=== PATIENT | male | born 1960 | race Caucasian/White ===

== ENCOUNTER 2017-06-16 16:25 | Emergency (ER) | payer BC ==
[2017-06-16] MEDS ORDERED: Morphine INJ* 4 MG/ML 1 ML SYRINGE IV ONE (17:43)
[2017-06-16] MEDS ORDERED: Ondansetron INJ* 2 MG/ML VIAL IV ONE (17:43)
[2017-06-16] MEDS ORDERED: NS 0.9% 1000 ML* 2,000 ML IV ONE (17:43)
--- NOTE | 2017-06-16 18:22 | RAD ---
INDICATION: LEFT flank and LEFT lower quadrant pain increasing in severity over one week. History of urolithiasis. COMPARISON: February 12, 2009 CT. TECHNIQUE: Multidetector CT images were obtained from the lung bases to the ischial tuberosities. Evaluation of the viscera is limited without IV contrast. Multiplanar reformation. REPORT: Unchanged tiny focus of subpleural thickening at the superior segment of the RIGHT lower lobe compared with the 2009 exam without concern. Decreased density of the liver consistent with fatty infiltration. No focal hepatic lesions, biliary dilatation, or CT abnormality of the gallbladder, pancreas, or spleen. Negative for CT abnormality of the upper GI, small bowel, or infra cecal appendix. Mild colonic diverticulosis without findings of diverticulitis. Negative for ascites or free air. Fat-containing indirect appearing RIGHT inguinal hernia without inflammatory change. Normal adrenal glands. Enlarged RIGHT kidney with thin atrophic cortex and innumerable cysts with largest measuring up to 8 cm and lower pole calyceal stones measuring up to 1.6 cm maximum dimension. Negative for RIGHT hydronephrosis. Unremarkable nondilated RIGHT ureter. Moderate LEFT hydronephrosis and perinephric and periureteral inflammatory change is traced to a 8 mm distal ureteral stone approximate 5 cm from the ureterovesicular junction. Additional 2 mm stone at the midpole of the LEFT kidney. Largely decompressed urinary bladder without gross abnormality. Unremarkable prostate and symmetric seminal vesicles. Negative for lymphadenopathy. Mild to moderate calcific plaque of normal diameter abdominal aorta and iliac arteries. Physiologic distention of the IVC. Polyarticular degenerative arthropathy. No suspicious focal osseous lesions evident. IMPRESSION: 1. Urolithiasis. Moderate LEFT hydronephrosis and perinephric and periureteral inflammatory change is traced to an 8 mm distal ureteral stone approximate 5 cm from the ureterovesicular junction. 2. Enlarged RIGHT kidney with atrophic cortex and innumerable large cysts. Negative for RIGHT hydronephrosis.
[2017-06-16 18:32] LABS: Hematocrit 44 % (42-52); Hemoglobin 14.5 g/dl (14.0-18.0); Mean Corpuscular HGB Conc 33 g/dl (31-36); Mean Corpuscular Hemoglobin 30 pg (27-31); Mean Corpuscular Volume 90 fL (80-94); Mean Platelet Volume 10 um3 (7.4-10.4); Red Blood Count 4.85 10^6/ul (4.0-5.4); Red Cell Distribution Width 14 % (10.5-15); White Blood Count 12.8 10^3/ul (3.5-10.8)
[2017-06-16] MEDS ORDERED: HYDROmorphone* 1 MG/ML 1 ML SYR IV SLOW PU ONE ×2 (18:48→21:20)
[2017-06-16 18:51] LABS: Albumin 3.8 g/dL (3.2-5.2); BUN/Creatinine Ratio 10.8 (8-20); Calcium 9.2 mg/dL (8.6-10.3); EGFR African American 41.6 (>60); EGFR Non-African American 32.4 (>60); Globulin 3.4 g/dL (2-4); Total Bilirubin 0.9 mg/dL (0.2-1.0); Total Protein 7.2 g/dL (6.4-8.9)
--- NOTE | 2017-06-16 18:52 | ED ---
GI/ HPI - HPI Summary HPI Summary: 57M presents with left flank pain for a week. He states pain is present in LUQ and LLQ. He admits to nausea and vomiting. He denies any constipation or diarrhea. He denies any hematuria. He has history of kidney stones but says that the pain is much worst. last meal was at 10am with scrabbled eggs. He denies any previous abdominal surgeries. His kidney stones had been in his kidney last week when he was seen by Dr de jesus whom he normally sees. - History of Current Complaint Chief Complaint: EDAbdPain Time Seen by Provider: 06/16/17 17:33 Stated Complaint: ABD PAIN Pain Intensity: 7 - Allergy/Home Medications Allergies/Adverse Reactions: Allergies Allergy/AdvReac Type Severity Reaction Status Date / Time Lisinopril Allergy Intermediate Coughing Verified 06/16/17 16:36 PMH/Surg Hx/FS Hx/Imm Hx Endocrine/Hematology History: Denies: Hx Diabetes, Hx Sickle Cell Disease, Hx Thyroid Disease Cardiovascular History: Reports: Hx Hypertension - BORDERLINE HIGH JUST STARTED TAKING LISINOPRIL Denies: Hx Pacemaker/ICD Respiratory History: Denies: Hx Asthma, Hx Chronic Obstructive Pulmonary Disease (COPD) GI History: Denies: Hx Ulcer, Other GI Disorders History: Reports: Hx Kidney Stones - 2007 Musculoskeletal History: Denies: Other Musculoskeletal History Sensory History: Reports: Hx Contacts or Glasses - GLASSES Denies: Hx Hearing Aid Opthamlomology History: Reports: Hx Contacts or Glasses - GLASSES Neurological History: Denies: Other Neuro Impairments/Disorders Psychiatric History: Denies: Hx Panic Disorder - Surgical History Surgery Procedure, Year, and Place: KIDNEY STONES- 2007. PLANTAR WART REMOVAL - 1991. Left KNee medial meniscus repair, 09/24/13 Hx Anesthesia Reactions: No Infectious Disease History: No Infectious Disease History: Denies: Hx Hepatitis, Hx Human Immunodeficiency Virus (HIV), Traveled Outside the [place] in Last 30 Days - Family History Known Family History: Positive: Cardiac Disease - Social History Alcohol Use: Daily Alcohol Amount: 2 beers daily Substance Use Type: Reports: None Smoking Status (MU): Never Smoked Tobacco Review of Systems Negative: Fever Negative: Chest Pain Negative: Shortness Of Breath Positive: Abdominal Pain, Vomiting, Nausea. Negative: Diarrhea Positive: flank pain. Negative: dysuria All Other Systems Reviewed And Are Negative: Yes Physical Exam Triage Information Reviewed: Yes Vital Signs On Initial Exam: Initial Vitals Temp Pulse Resp BP Pulse Ox 99.6 F 111 16 174/103 95 06/16/17 16:26 06/16/17 16:26 06/16/17 16:26 06/16/17 16:26 06/16/17 16:26 Vital Signs Reviewed: Yes Appearance: Positive: Pain Distress Skin: Positive: Warm, Dry Head/Face: Positive: Normal Head/Face Inspection Eyes: Positive: Normal, Conjunctiva Clear ENT: Positive: Normal ENT inspection, Pharynx normal, TMs normal Respiratory/Lung Sounds: Positive: Clear to Auscultation, Breath Sounds Present Cardiovascular: Positive: Normal, RRR Abdomen Description: Positive: Soft, CVA Tenderness (L), Other: - tenderness in LUQ and LLQ pain Bowel Sounds: Positive: Present - [place] Coma Scale Coma Scale Total: 15 Diagnostics - Vital Signs Vital Signs Temp Pulse Resp BP Pulse Ox 06/16/17 18:29 89 93 06/16/17 18:19 22 06/16/17 16:26 99.6 F 111 16 174/103 95 - Laboratory Lab Results: Lab Results 06/16/17 Range/Units 18:23 Sodium 134 (133-145) mmol/L Potassium Pending Chloride 102 (101-111) mmol/L Carbon Dioxide 20 L (22-32) mmol/L Anion Gap Pending BUN 23 (6-24) mg/dL Creatinine 2.12 H (0.67-1.17) mg/dL Est GFR ( Amer) 41.6 (>60) Est GFR (Non-Af Amer) 32.4 (>60) BUN/Creatinine Ratio 10.8 (8-20) Glucose 124 H (70-100) mg/dL Calcium 9.2 (8.6-10.3) mg/dL Total Bilirubin 0.90 (0.2-1.0) mg/dL AST Pending ALT 15 (7-52) U/L Alkaline Phosphatase 69 (34-104) U/L C-React Prot High Sens 128.44 mg/L Total Protein 7.2 (6.4-8.9) g/dL Albumin 3.8 (3.2-5.2) g/dL Globulin 3.4 (2-4) g/dL Albumin/Globulin Ratio 1.1 (1-3) Lipase 42 (11.0-82.0) U/L Result Diagrams: 06/16/17 18:23 06/16/17 18:23 Lab Statement: Any lab studies that have been ordered have been reviewed, and results considered in the medical decision making process. - CT abd CT Interpretation: Positive (See Comments) - IMPRESSION: 1. Urolithiasis. Moderate LEFT hydronephrosis and perinephric and periureteral inflammatory change is traced to an 8 mm distal ureteral stone approximate 5 cm from the ureterovesicular junction. 2. Enlarged RIGHT kidney with atrophic cortex and innumerable large cysts. Negative for RIGHT hydronephrosis. CT Interpretation Completed By: Radiologist MAGO Course/Dx - Course Course Of Treatment: 57M presents with left flank pain for a week. He states pain is present in LUQ and LLQ. He admits to nausea and vomiting. He denies any constipation or diarrhea. He denies any hematuria. He has history of kidney stones but says that the pain is much worst. He denies any previous abdominal surgeries. His kidney stones had been in his kidney last week when he was seen by Dr de jesus whom he normally sees. on exam pos CVA tenderness left. pain controlled with dilaudid and morphine. u/a no infection. CT shows 8mm stone. spoke with dr cabrera said to follow up outpatient. discussed with patient as would like to see dr de jesus tomorrow. patient understands and agrees with plan. - Diagnoses Differential Diagnoses - Male: Pyelonephritis, Ureteral Calculi, Urinary Tract Infection Provider Diagnoses: Kidney stone - Physician Notifications Discussed Care Of Patient With: dr cabrera Time Discussed With Above Provider: 20:11 - send home to follow up outpatient tomorrow, pain meds, zofran, flomax, get kub Discharge - Discharge Plan Condition: Good Disposition: HOME Prescriptions: Ondansetron ODT TAB* [Zofran 4 MG Odt TAB*] 4 mg PO Q6H PRN #20 tab.odt PRN Reason: Nausea Tamsulosin CAP* [Flomax CAP*] 0.4 mg PO DAILY #7 cap oxyCODONE/Acetamin 5/325 MG* [Percocet 5/325 TAB*] 1 tab PO Q4H PRN #30 tab MDD 6 PRN Reason: Pain Patient Education Materials: Kidney Stones (ED) Referrals: Concetta Handley MD [Primary Care Provider] - Qamar De Jesus MD [Medical Doctor] - Additional Instructions: Take narcotic as needed every 4-6 hours Take Zofran every 6 hours for nausea as needed Take Flomax daily starting tomorrow, first dose given in ED until stone expelled , make sure stand up slowly Follow up with urology, call office tomorrow for appointment Strain urine until collect stone Return to ED if unable to manage pain at home, develop fever, or any new or worsening symptoms
[2017-06-16 18:53] LABS: Potassium 4.5 mmol/L (3.5-5.0)
[2017-06-16 19:10] LABS: Urine Bacteria Absent (Absent); Urine Bilirubin Negative (Negative); Urine Glucose Negative (Negative); Urine Nitrite Negative (Negative)
[2017-06-16] MEDS ORDERED: Tamsulosin CAP* 0.4 MG PO ONE (20:10)
[2017-06-16] MEDS ORDERED: oxyCODONE/Acetamin 5/325 MG* TAB PO ONE (20:48)
[2017-06-16] MEDS ORDERED: Ondansetron ODT TAB* 4 MG PO ONE (20:48)
[2017-06-16 21:12] VITALS: BP 176/105
--- NOTE | 2017-06-16 21:30 | RAD ---
Indication: LEFT lower quadrant pain radiating superiorly and posteriorly. LEFT hydronephrosis traced to a distal ureteral stone on CT of the same date. Comparison: CT of the same date. Technique: Supine AP abdomen. Report: 7 mm cephalocaudal distal LEFT ureteral stone visualized corresponding with the CT finding. Multiple pelvic phleboliths visualized. No calcifications visualized at the level of the renal fossa with bowel contents limiting assessment. Unremarkable soft tissue contours. IMPRESSION: No change in position of the distal LEFT ureteral stone compared with the CT of the same date.
== END 2017-06-16 21:53 | disposition home or self-care (01) ==
LOC: ED 16:25
DX: N20.0 Calculus of kidney (principal); R11.2 Nausea with vomiting, unspecified; R10.84 Generalized abdominal pain
CPT/HCPCS: 36415; 74000; 74176; 80053; 81003; 81015; 83690; 85025; 86141; 96374; 96375; 99285; A9270-GY; J1170; J2270; J2405

== ENCOUNTER 2017-06-17 09:52 | Day surgery (SDC) | payer BC ==
--- NOTE | 2017-06-17 09:41 | HP ---
CC: Dr. Concetta Handley* HISTORY AND PHYSICAL: DATE OF PLANNED ADMISSION AND SURGERY: 06/17/17 HISTORY OF PRESENT ILLNESS: Mr. Kan is a 57-year-old white male who is admitted with a left ureteral calculus for cystoscopy, left ureteral ureteroscopy, laser lithotripsy, and left ureteral stent placement. Mr. Kan is a known stone former, and, in 2008, he required left ureteroscopy and laser lithotripsy of a left ureteral calculus. He had been followed with periodic renal ultrasounds. He is known to have a multi-cystic, poorly-functioning right kidney with multiple calcifications in it. The right kidney has been asymptomatic. He is also known to have left renal calculi which had been observed. About one week ago, he started having mild left abdominal and left lower quadrant pain. There was no associated fever or chills, or voiding symptoms. He presented to the emergency room last night with symptoms of left renal colic. His urinalysis was positive for blood, negative for infection. His creatinine was elevated at 2.2. (baseline 1.3) His white count was normal. Non-contrast CT of the abdomen and pelvis showed again the multi-cystic right kidney with non-obstructing calculi. There was left hydronephrosis and hydroureter, and an 8-10 mm calculus in the distal left ureter, about 5 cm above the ureterovesical junction. Patient was treated with IV fluids, pain medication, and sent home. I evaluated him in the office this morning, and he is feeling much better with less pain. He hasn't had any fever or chills. Because of the degree of obstruction, the size of the obstructing stone of his good kidney, he is taken to the OR on an urgent basis for endoscopic stone extraction and Lt ureteral stent placement. PAST MEDICAL HISTORY AND SYSTEM REVIEW: The patient is hypertensive, and was recently started on amlodipine. He has not taken his medication this morning. He is otherwise in good health. He denies any cardiac or pulmonary diseases or symptoms. SURGICAL HISTORY: Relevant for a meniscus surgery on his left knee several years ago. ALLERGIES: He denies any allergies to medications. FAMILY HISTORY: Relevant for his father who of prostate carcinoma at the age of 56. The patient's last PSA four months ago was normal at 0.7. PHYSICAL EXAMINATION GENERAL: Obese white male who looks comfortable and in no acute pain. VITAL SIGNS: Blood pressure 160/100, pulse 110, temperature 96.5. LUNGS: Clear. HEART: Regular and rhythmic. No murmurs. ABDOMEN: Soft, obese, no CVA tenderness. EXTERNAL GENITALIA: Normal. RECTAL EXAM: Done earlier this year showed a non-enlarged and non-suspicious prostate. IMPRESSION: Left renal colic due to an 8-10 mm calculus in the distal left ureter. Left non-obstructing renal calculi. Poorly functioning multi-cystic right kidney with non-obstructing renal calculi. Decreased renal function due to the obstruction of his good functioning kidney. Hypertension. PLAN: Plan is for cystoscopy, left ureteroscopy, laser lithotripsy, and left ureteral stent insertion. I discussed the above plans in detail with the patient. All his questions were answered. Patient understands that his procedure might have to be staged if the ureteroscopy cannot be performed due to edema around the stone. [id number]/CPS #: [id number] MTDD
[~2017-06-17 09:52] MED LIST: Buffered Lidocaine 0.9% SYRIN* 5 ML/SYR SYRINGE ONE; cefTRIAXone(*) 2 GM ADDV.VIAL IVPB ONE
[2017-06-17] MEDS ORDERED: HYDROmorphone* 2 MG/ML 1 ML SYR ONE (09:57)
[2017-06-17] MEDS ORDERED: Midazolam* 1 MG/ML 2 ML VIAL (2 MG) ONE (10:38)
[2017-06-17] MEDS ORDERED: fentaNYL* 50 MCG/ML 2 ML VIAL (100 MCG VIAL) ONE (10:38)
[2017-06-17] MEDS ORDERED: Iohexol 180 (CONTRAST) 10 ML SDV IV ONE (11:14)
[2017-06-17] MEDS ORDERED: Labetalol IV* 5 MG/ML 20 ML VIAL ONE (11:40)
[2017-06-17] MEDS ORDERED: Propofol* 10 MG/ML 20 ML BTL IV PUSH ONE (11:42)
[2017-06-17] MEDS ORDERED: Lidocaine 2% PF * 5 ML VIAL ONE (11:42)
[2017-06-17] MEDS ORDERED: Dexamethasone IV* 4 MG/ML 1 ML (4 MG) ONE (11:42)
[2017-06-17] MEDS ORDERED: Ondansetron INJ* 2 MG/ML VIAL ONE (11:42)
[2017-06-17] MEDS ORDERED: hydrALAZINE IV* 20 MG/ML VIAL ONE ×2 (11:42→13:54)
[2017-06-17] MEDS ORDERED: Acetaminophen IV 1GM/100ML * 100 ML IVPB ONE (12:14)
[2017-06-17] MEDS ORDERED: oxyCODONE/Acetamin 5/325 MG* TAB PO PRN (12:14)
[2017-06-17] MEDS ORDERED: Acetaminophen IV 1GM/100ML * 100 ML ONE (12:56)
--- NOTE | 2017-06-17 13:05 | RAD ---
INDICATION: Cystoscopy, left ureteroscopy COMPARISONS: None relevant TECHNIQUE: Fluoroscopy was provided for a retrograde pyelogram and stent placement. Total fluoroscopy time is: 18 seconds FINDINGS: Contrast is noted within the renal collecting system. A ureteral stent is noted. IMPRESSION: FLUOROSCOPY WAS PROVIDED FOR A RETROGRADE PYELOGRAM AND STENT PLACEMENT CPT II Codes: 6045F
[2017-06-17] MEDS ORDERED: oxyCODONE/Acetamin 5/325 MG* TAB ONE (13:10)
[2017-06-17 14:38] VITALS: BP 167/98
--- NOTE | 2017-06-18 12:08 | OP ---
CC: Dr. Concetta Handley * DATE OF OPERATION: 06/17/17 - [facility] DATE OF : 60 SURGEON: Qamar De Jesus MD ANESTHESIOLOGIST: Nesha Bai MD ANESTHESIA: General. PRE-OP DIAGNOSES: 1. Left ureteral calculus (8 to 10 mm). 2. Left renal colic and left hydronephrosis due to above. 3. Poorly functioning right kidney. POST-OP DIAGNOSES: 1. Left ureteral calculus (8 to 10 mm). 2. Left renal colic and left hydronephrosis due to above. 3. Poorly functioning right kidney. OPERATIVE PROCEDURE: 1. Cystoscopy. 2. Left ureteroscopy and laser lithotripsy of left ureteral calculus. 3. Left retrograde pyelography and placement of left ureteral stent (6-Malagasy). INDICATIONS: Mr. Kan is a 57-year-old white male, who has multicystic poorly functioning right kidney and known left renal calculi. He presented early this morning to the emergency room with symptoms of left renal colic and noncontrast CT of the abdomen and pelvis showed an 8- to 10-mm calculus in the distal left ureter associated with left hydroureteronephrosis. Nonobstructing left renal calculi were noted. The chronic changes in the right kidney were again seen. His serum creatinine was elevated at 2.2, up from a baseline of 1.3. Because of the above history and findings, the patient is taken to the operating room for the above procedure. PATHOLOGY AT CYSTOSCOPY: The penile and bulbar urethrae looked normal. There was moderate elevation of the bladder neck with partial obstruction by the prostate. Examination of the bladder showed normal bladder mucosa. There was a single ureteral orifice on each side. There were no suspicious bladder lesions seen. Upon left ureteroscopy, an 8- to 10-mm calculus was noted in the distal left ureter about 4 cm above the level of the orifice. At fluoroscopy, the left kidney looked obstructed and incompletely rotated. DESCRIPTION OF PROCEDURE: After successful general anesthesia, the patient was placed in the lithotomy position and was prepped and draped for a cystoscopy. Cystoscopy was performed. The bladder was carefully inspected and above findings were noted. A flexible-tip guidewire was then introduced into the left orifice and positioned in the area of the left renal pelvis. The cystoscope was removed, keeping the guidewire in place. A size 6.5 semirigid ureteroscope was then introduced under direct vision inside the bladder. A flexible-tip basket was then introduced through the port of the ureteroscope and its flexible tip was passed inside the left ureteral orifice and was used as a guide to introduce the ureteroscope into the ureter with minimal trauma. The ureteral calculus was identified. The basket was deployed and the stone was partially engaged to prevent its proximal migration. A size 550 micron laser fiber was then introduced through the other port of the ureteroscope and was used to fragment the calculus in multiple pieces. The stone fragments were then extracted. Inspection of the ureter showed edema of the mucosa, but there was no evidence of any ureteral injury. After making sure there were no significant residual calculi fragments inside the ureter, the ureteroscope was removed. The cystoscope was introduced inside the bladder over the guidewire. Retrograde pyelography was performed. A size 6 -Malagasy stent was then placed with the proximal end coiling in the renal pelvis and the distal end coiling inside the bladder. The stone fragments that had remained inside the bladder lumen were then extracted and sent for stone analysis. A size 16-Malagasy Shin catheter was passed inside the bladder and the balloon inflated with 10 cc of water. The patient tolerated the procedure well and left the operating room in good condition. The plan is to leave the stent in place for about 10 to 12 days to allow for the resolution of the ureteral wall edema. It will be removed in the office under local anesthesia. [id number]/CPS #: [id number] [place]
== END 2017-06-17 14:40 | disposition home or self-care (01) ==
LOC: OR 09:52
PROVIDERS: ATTEND Urology
DX: N13.2 Hydronephrosis with renal and ureteral calculous obstruction (principal); R31.9 Hematuria, unspecified; I10 Essential (primary) hypertension; R73.03 Prediabetes; E66.01 Morbid (severe) obesity due to excess calories
CPT/HCPCS: 74420; 82365; 88300; A9270-GY; C1876; J0360; J0696; J1100; J1170; J2250; J2405; J2704; J3010

== ENCOUNTER 2019-10-26 14:06 | Emergency (ER) | payer BC ==
[2019-10-26 14:34] VITALS: BP 153/92
--- NOTE | 2019-10-26 15:06 | UC ---
Lower Extremity/Ankle HPI - HPI Summary HPI Summary: About 2:30 this morning the cart became off balance and a piece of electronic equipment slid off and hit his bilateral shins. He is worked wrist days able to ambulate and comes in because it was a work related illness and he has tendency to get cellulitis. - History of Current Complaint Chief Complaint: UCLowerExtremity Stated Complaint: LEG INJURY AT WORK Time Seen by Provider: 10/26/19 14:55 Hx Obtained From: Patient Onset/Duration: Sudden Onset Severity Initially: Mild Severity Currently: Mild Pain Intensity: 2 Aggravating Factor(s): Ambulation Alleviating Factor(s): Rest Able to Bear Weight: Yes - Allergies/Home Medications Allergies/Adverse Reactions: Allergies Allergy/AdvReac Type Severity Reaction Status Date / Time lisinopril Allergy Coughing Verified 10/26/19 14:34 PMH/Surg Hx/FS Hx/Imm Hx Previously Healthy: Yes Cardiovascular History: Hypertension - Surgical History Surgical History: Yes Surgery Procedure, Year, and Place: KIDNEY STONES- 2007,2016. PLANTAR WART REMOVAL -1991. Left KNee medial meniscus repair, 09/24/13 - Family History Known Family History: Positive: Cardiac Disease - Social History Alcohol Use: Daily Alcohol Amount: 2 beers daily Substance Use Type: None Smoking Status (MU): Former Smoker - Immunization History Most Recent Influenza Vaccination: 09/02 Review of Systems All Other Systems Reviewed And Are Negative: Yes Skin: Positive: Bruising - Abrasion Physical Exam Triage Information Reviewed: Yes Appearance: Well-Appearing, No Pain Distress, Obese Vital Signs: Initial Vital Signs Temp 97.8 F 10/26/19 14:30 Pulse 65 10/26/19 14:30 Resp 16 10/26/19 14:30 BP 153/92 10/26/19 14:30 Pulse Ox 97 10/26/19 14:30 Vital Signs Reviewed: Yes Musculoskeletal Exam: Normal Neurological Exam: Normal - He's got some ecchymosis and abrasion to his bilateral shins. The left side is worse than the right. Lower Extremity Course/Dx - Course Course Of Treatment: Is likely going to get a good bruise there. He states that he is going to ice and elevate them tonight as well as treat the abrasions with some antibiotic ointment. He will keep an eye on them for any developing cellulitis and follow- up appropriately. - Differential Dx/Diagnosis Provider Diagnosis: Abrasion of leg, left, Abrasion of leg, right, Multiple leg contusions Discharge ED - Sign-Out/Discharge Documenting (check all that apply): Patient Departure All imaging exams completed and their final reports reviewed: No Studies - Discharge Plan Condition: Stable Disposition: HOME Referrals: Gonzalo Medellin MD [Primary Care Provider] - - Billing Disposition and Condition Condition: STABLE Disposition: Home
== END 2019-10-26 15:20 | disposition home or self-care (01) ==
LOC: UCEAST 14:06
DX: S80.812A Abrasion, left lower leg, initial encounter (principal); S80.811A Abrasion, right lower leg, initial encounter; S80.12XA Contusion of left lower leg, initial encounter; S80.11XA Contusion of right lower leg, initial encounter; I10 Essential (primary) hypertension; Z87.891 Personal history of nicotine dependence; Z88.8 Allergy status to other drugs, medicaments and biological substances; W22.8XXA Striking against or struck by other objects, initial encounter; Y92.9 Unspecified place or not applicable
CPT/HCPCS: 99211; G0463